=== PATIENT | male | born 1965 | race Caucasian/White ===

== ENCOUNTER 2017-03-07 12:22 | Emergency (ER) | payer SELFPAY ==
[2017-03-07 12:39] VITALS: BP 142/77; PULSE 95; TEMP 98.2; BMI 27.3
[2017-03-07] MEDS ORDERED: KETOROLAC TROMETHAMINE 60 MG/2 ML VIAL IM ONE (14:04)
--- NOTE | 2017-03-07 14:04 | PDOC ---
History of Present Illness - General Chief Complaint: Back Pain Stated Complaint: PAIN Time Seen by Provider: 03/07/17 13:51 History Source: Patient Exam Limitations: No Limitations - History of Present Illness Travel History: Yes Initial Comments: 03/07/17 13:58 Patient here with complaints of left low back pain. Denies fall, trauma, any history of back pain however has had a history of renal colic 3 weeks ago and was treated by PMD in [place]. Denies numbness or tingling to hands or feet, no problems with bowel. States has had some painful urination recently. No fevers States had onset approximately 3 days ago and is progressively worsened. 03/08/17 08:43 Timing/Duration: reports: intermittent Quality: reports: moderate, sharpness, stabbing Abdominal Pain Onset Location: reports: flank Pain Radiation: reports: no radiation Activities at Onset: reports: none Aggravating Factors: improves with: None Past History - Travel Traveled outside of the country in the last 30 days: No Close contact w/someone who was outside of country & ill: No - Past Medical History Allergies/Adverse Reactions: Allergies Allergy/AdvReac Type Severity Reaction Status Date / Time No Known Allergies Allergy Verified 03/07/17 12:36 Home Medications: Ambulatory Orders Oxycodone HCl/Acetaminophen [Percocet 5-325 mg Tablet -] 1 - 2 tab PO Q4H PRN # 10 tablet MDD 4 03/07/17 Tamsulosin HCl [Flomax] 0.4 mg PO DAILY #7 cap.er.24h 03/07/17 COPD: No Other medical history: DENIES. - Suicide/Smoking/Psychosocial Hx Smoking History: Never smoked Review of Systems - Review of Systems Able to Perform ROS?: Yes Is the patient limited Hungarian proficient: Yes Constitutional: Yes: Symptoms Reported, See HPI, Malaise Respiratory: Yes: See HPI. No: Symptoms reported ABD/GI: Yes: Symptoms Reported, See HPI, Nausea : Yes: Symptoms Reported, See HPI Musculoskeletal: Yes: Symptoms Reported, See HPI, Back Pain All Other Systems: Reviewed and Negative *Physical Exam - Vital Signs Last Vital Signs Temp Pulse Resp BP Pulse Ox 98.2 F 95 H 19 142/77 96 03/07/17 12:36 03/07/17 12:36 03/07/17 12:36 03/07/17 12:36 03/07/17 12:36 - Physical Exam General Appearance: Yes: Nourished, Appropriately Dressed, Mild Distress HEENT: positive: CHELSIE, Normal ENT Inspection, Normal Voice, Symmetrical, TMs Normal, Pharynx Normal Neck: positive: Supple. negative: Tender Respiratory/Chest: positive: Lungs Clear, Normal Breath Sounds Gastrointestinal/Abdominal: positive: Normal Bowel Sounds, Soft. negative: Tender, Guarding, Rebound, Tenderness Musculoskeletal: positive: Normal Inspection, CVA Tenderness, CVA Tenderness (L) . negative: Muscle Spasm, Vertebral Tenderness Extremity: positive: Normal Capillary Refill, Normal Range of Motion. 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 Patient experienced same 3 weeks ago and was treated with pain medications and what sounds to be Flomax. States passed 2 kidney stones and felt relief until 2 days ago when he had recurrence of this faint all pain to his left back/flank. CAT scan reveals multiple renal calculi nonobstructing. Also some questionable liver disease. Patient is visiting from [place], will provide report and discs for patient to transport to his private physician and his urologist in [place]. Given Flomax and #10 tablets for pain relief.tabs for pain relief.percocet *DC/Admit/Observation/Transfer Diagnosis at time of Disposition: Renal colic on left side - Discharge Dispostion Disposition: HOME Condition at time of disposition: Stable Admit: No - Prescriptions Prescriptions: Oxycodone HCl/Acetaminophen [Percocet 5-325 mg Tablet -] 1 - 2 tab PO Q4H PRN # 10 tablet MDD 4 PRN Reason: Pain Tamsulosin HCl [Flomax] 0.4 mg PO DAILY #7 cap.er.24h - Referrals - Patient Instructions Printed Discharge Instructions: Kidney Stones -- Adult Additional Instructions: Rest, drink lots of fluids: Teas, water, soups Avoid contact with others until fevers and symptoms resolved Lots of handwashing and good hygiene Continue [id number] medications for symptomatic relief Tylenol or Motrin for fever and pain Flomax 1 tablet daily for 7 days Use Percocet one or 2 tablets every 6 hours as needed for severe pain to bring will make dizzy and sleepy Followup with private physician in one to 2 days as needed Return to emergency department for worsened symptoms, fevers, dehydration - Post Discharge Activity Forms/Work/School Notes: Back to Work
[2017-03-07] MEDS ORDERED: KETOROLAC TROMETHAMINE 60 MG/2 ML VIAL ONE (14:20)
[2017-03-07 14:31] LABS: URINE APPEARANCE CLEAR; URINE BILIRUBIN NEGATIVE (NEGATIVE); URINE BLOOD NEGATIVE (NEGATIVE); URINE COLOR YELLOW; URINE GLUCOSE (UA) NEGATIVE (NEGATIVE); URINE KETONE NEGATIVE (NEGATIVE); URINE LEUK ESTERASE NEGATIVE (NEGATIVE); URINE NITRITE NEGATIVE (NEGATIVE); URINE PROTEIN NEGATIVE (NEGATIVE); URINE UROBILINOGEN NEGATIVE mg/dL (0.2-1.0)
== END 2017-03-07 17:02 | disposition home or self-care (01) ==
LOC: JERFT 12:22
PROC: 3E0233Z Introduction of Anti-inflammatory into Muscle, Percutaneous Approach (ICD-10-PCS; principal; 2017-03-07)
DX: N20.0 Calculus of kidney (principal); Z87.442 Personal history of urinary calculi
CPT/HCPCS: 74176; 81003; 99281-25

== ENCOUNTER 2017-06-09 22:57 | Emergency (ER) | payer SELFPAY ==
[2017-06-09 23:11] VITALS: BP 172/100; PULSE 81; TEMP 97; BMI 27.3
[2017-06-09] MEDS ORDERED: morphine CARPU-JECT 2 MG/1 ML DISP.SYRIN IVPUSH ONE (23:24)
--- NOTE | 2017-06-09 23:24 | PDOC ---
History of Present Illness - General History Source: Patient Exam Limitations: No Limitations - History of Present Illness Initial Comments: 06/09/17 23:53 The patient is a 51 year old male with a significant past medical history of recurrent kidney stones who presents to the ED with complaints of right flank pain since earlier today. Patient reports a sudden onset of right sided flank pain and right lower quadrant pain around 9pm tonight. Patient also reports nausea associated with present symptoms. He states he has a history of recurrent kidney stones and his last episode of was in February 2017. Patient notes he has an appointment with a renal specialist. Denies fever or chills. Denies dysuria or hematuria. Denies vomiting or diarrhea. Denies any other symptoms. <Rachel Kerr - Last Filed: 06/09/17 23:53> <Henny Dougherty - Last Filed: 06/10/17 06:12> - General Chief Complaint: Pain, Acute Stated Complaint: ABD PAIN Time Seen by Provider: 06/09/17 23:12 Past History <Rachel Kerr - Last Filed: 06/09/17 23:53> - Past Medical History COPD: No - Suicide/Smoking/Psychosocial Hx Smoking History: Never smoked Have you smoked in the past 12 months: No Information on smoking cessation initiated: No Hx Alcohol Use: No Drug/Substance Use Hx: No <Henny Dougherty - Last Filed: 06/10/17 06:12> - Past Medical History Allergies/Adverse Reactions: Allergies Allergy/AdvReac Type Severity Reaction Status Date / Time No Known Allergies Allergy Verified 06/09/17 23:12 Home Medications: Ambulatory Orders Oxycodone HCl/Acetaminophen [Percocet 5-325 mg Tablet -] 1 - 2 tab PO Q4H PRN # 10 tablet MDD 4 03/07/17 Tamsulosin HCl [Flomax] 0.4 mg PO DAILY #7 cap.er.24h 03/07/17 Ibuprofen [Motrin -] 600 mg PO TID #30 tablet 06/10/17 Tamsulosin HCl [Flomax] 0.4 mg PO DAILY #7 capsule 06/10/17 Review of Systems - Review of Systems Able to Perform ROS?: Yes Comments:: 06/09/17 23:54 CONSTITUTIONAL: Absent: fever, chills, diaphoresis, generalized weakness, malaise, loss of appetite HEENT: Absent: rhinorrhea, nasal congestion, throat pain, throat swelling, difficulty swallowing, mouth swelling, ear pain, eye pain, visual Changes CARDIOVASCULAR: Absent: chest pain, syncope, palpitations, irregular heart rate, lightheadedness , peripheral edema RESPIRATORY: Absent: cough, shortness of breath, dyspnea with exertion, orthopnea, wheezing, stridor, hemoptysis GASTROINTESTINAL: + abdominal pain, nausea Absent: abdominal distension, vomiting, diarrhea, constipation, melena, hematochezia GENITOURINARY: + flank pain Absent: dysuria, frequency, urgency, hesitancy, hematuria, genital pain MUSCULOSKELETAL: Absent: myalgia, arthralgia, joint swelling SKIN: Absent: rash, itching, pallor HEMATOLOGIC/IMMUNOLOGIC: Absent: easy bleeding, easy bruising, lymphadenopathy, frequent infections ENDOCRINE: Absent: unexplained weight gain, unexplained weight loss, heat intolerance, cold intolerance NEUROLOGIC: Absent: headache, focal weakness or paresthesias, dizziness, unsteady gait, seizure, mental status changes, bladder or bowel incontinence PSYCHIATRIC: Absent: anxiety, depression, suicidal or homicidal ideation, hallucinations. All Other Systems: Reviewed and Negative <Rachel Kerr - Last Filed: 06/09/17 23:53> *Physical Exam - Vital Signs Last Vital Signs Temp Pulse Resp BP Pulse Ox 97.0 F L 81 22 172/100 98 06/09/17 23:04 06/09/17 23:04 06/09/17 23:04 06/09/17 23:04 06/09/17 23:04 - Physical Exam Comments: 06/09/17 23:54 GENERAL: Well developed, well nourished. Awake and alert. No acute distress. HEENT: Normocephalic, atraumatic. PERRLA, EOMI. No conjunctival pallor. Sclera are non- icteric. Moist mucous membranes. Oropharynx is clear. NECK: Supple. Full ROM. No JVD. Carotid pulses 2+ and symmetric, without bruits. No thyromegaly. No lymphadenopathy. CARDIOVASCULAR: Regular rate and rhythm. No murmurs, rubs, or gallops. Distal pulses are 2+ and symmetric. PULMONARY: No evidence of respiratory distress. Lungs clear to auscultation bilaterally. No wheezing, rales or rhonchi. ABDOMINAL: + Right flank and right lower quadrant tenderness Soft. Non-distended. No rebound or guarding. No organomegaly. Normoactive bowel sounds. MUSCULOSKELETAL Normal range of motion at all joints. No bony deformities or tenderness. No CVA tenderness. EXTREMITIES: No cyanosis. No clubbing. No edema. No calf tenderness. SKIN: Warm and dry. Normal capillary refill. No rashes. No jaundice. NEUROLOGICAL: Alert, awake, appropriate. Cranial nerves 2-12 intact. No deficits to light touch and temperature in face, upper extremities and lower extremities. No motor deficits in the in face, upper extremities and lower extremities. Normoreflexic in the upper and lower extremities. Normal speech. Toes are down- going bilaterally. Gait is normal without ataxia. PSYCHIATRIC: Cooperative. Good eye contact. Appropriate mood and affect. <Rachel Kerr - Last Filed: 06/09/17 23:53> - Vital Signs Last Vital Signs Temp Pulse Resp BP Pulse Ox 97.0 F L 81 22 172/100 98 06/09/17 23:04 06/09/17 23:04 06/09/17 23:04 06/09/17 23:04 06/09/17 23:04 <Henny Dougherty - Last Filed: 06/10/17 06:12> ED Treatment Course - LABORATORY CBC & Chemistry Diagram: 06/09/17 23:15 06/09/17 23:15 - ADDITIONAL ORDERS Additional order review: 06/09/17 23:15 RBC 4.42 MCV 90.8 MCHC 35.0 RDW 13.3 MPV 9.3 Neutrophils % 66.9 Lymphocytes % 21.5 Monocytes % 8.1 Eosinophils % 3.1 Basophils % 0.4 <Rachel Kerr - Last Filed: 06/09/17 23:53> - LABORATORY CBC & Chemistry Diagram: 06/09/17 23:15 06/09/17 23:15 <Henny Dougherty - Last Filed: 06/10/17 06:12> Medical Decision Making - Medical Decision Making 06/10/17 00:43 Patient Name: JAVI PAYNE THIS IS A PRELIMINARY REPORT FROM [facility] DATE OF SERVICE: 2017-06-10 00:08:14 IMAGES: [id number] EXAM: CT ABDOMEN AND PELVIS WITHOUT CONTRAST 2 mm stone distal right ureter near UVJ causing moderate hydronephrosis. Bilateral nephrolithiasis. Unremarkable pancreas and gallbladder. No bowel obstruction, colitis, free fluid or free air. Normal appendix. Chronic fracture left posterior rib 10. 06/10/17 06:11 Pt got off the bus from [place] with flank pain. He has known renal colic and stones. Pt writhing in pain and he was treated with morphine, NSS and flomax. Pt's sones are no larger than 2mm. He is stable for discharge and outpt follow up with his docs. <Henny Dougherty - Last Filed: 06/10/17 06:12> *DC/Admit/Observation/Transfer - Attestations Scribe Attestion: 06/09/17 23:54 Documentation prepared by Rachel Krer, acting as mobile paramedical examiner for Henny Dougherty MD <Rachel Kerr - Last Filed: 06/09/17 23:53> - Discharge Dispostion Admit: No <Henny Dougherty - Last Filed: 06/10/17 06:12> Diagnosis at time of Disposition: Renal colic on right side - Discharge Dispostion Disposition: HOME Condition at time of disposition: Stable - Prescriptions Prescriptions: Ibuprofen [Motrin -] 600 mg PO TID #30 tablet Tamsulosin HCl [Flomax] 0.4 mg PO DAILY #7 capsule - Referrals Referrals: ON STAFF,NOT [Primary Care Provider] - - Patient Instructions Printed Discharge Instructions: Kidney Stones -- Adult - Post Discharge Activity
[2017-06-09 23:43] LABS: BASO % 0.4 % (0-2.0); EOS % 3.1 % (0-4.5); HEMATOCRIT 40.2 % (35.4-49); HEMOGLOBIN 14.1 GM/dL (11.7-16.9); LYMPH % 21.5 % (8-40); MCH 31.8 pg (25.7-33.7); MEAN CELL VOLUME 90.8 fl (80-96); MEAN PLT VOLUME 9.3 fl (7.5-11.1); MONO % 8.1 % (3.8-10.2); NEUT % 66.9 % (42.8-82.8); PLATELET COUNT 148 K/MM3 (134-434); RBC 4.42 M/mm3 (4.00-5.60); RDW 13.3 % (11.9-15.9); WHITE BLOOD COUNT 7.9 K/mm3 (4.0-10.0)
[2017-06-09] MEDS ORDERED: morphine SULFATE 4 MG/ML VIAL ONE (23:59)
[2017-06-10 00:11] LABS: ALBUMIN 4.1 g/dl (3.4-5.0); ANION GAP 11 (8-16); BLOOD UREA NITROGEN 22 mg/dL (7-18); CHLORIDE 108 mmol/L (98-107); CO2 25 mmol/L (21-32); CREATININE 0.9 mg/dL (0.7-1.3); GLUCOSE,RANDOM 115 mg/dL (74-106); POTASSIUM 3.4 mmol/L (3.5-5.1); SGOT/AST 21 U/L (15-37); SGPT/ALT 34 U/L (12-78); SODIUM 144 mmol/L (136-145)
[2017-06-10 00:12] LABS: URINE APPEARANCE SLCLOUDY; URINE BILIRUBIN NEGATIVE (<2.0 mg/dL); URINE BLOOD 3+ (NEGATIVE); URINE COLOR DKYELLOW; URINE GLUCOSE (UA) NEGATIVE (NEGATIVE); URINE KETONE 1+ (NEGATIVE); URINE LEUK ESTERASE NEGATIVE (NEGATIVE); URINE NITRITE NEGATIVE (NEGATIVE); URINE PROTEIN NEGATIVE (NEGATIVE); URINE UROBILINOGEN NEGATIVE mg/dL (0.2-1.0)
[2017-06-10 00:13] LABS: ALK PHOS 78 U/L (45-117); BILIRUBIN,TOTAL 0.6 mg/dL (0.2-1.0); TOT PROT 7.6 g/dl (6.4-8.2)
[2017-06-10] MEDS ORDERED: SODIUM CHLORIDE 0.9% 500 ML INFUS.BAG IV ONE ×2 (00:18→00:27)
[2017-06-10] MEDS ORDERED: TAMSULOSIN HCL 0.4 MG CAP.ER.24H (FP) PO ONE (00:24)
[2017-06-10 00:29] LABS: EPI CELLS RARE /HPF (FEW); GRANULAR CASTS 3 /lpf; URINE BACTERIA RARE /hpf (NONE SEEN); URINE MUCUS FEW
[2017-06-10] MEDS ORDERED: KETOROLAC TROMETHAMINE 30 MG/1 ML VIAL IVPUSH ONE (00:44)
[2017-06-10] MEDS ORDERED: TAMSULOSIN HCL 0.4 MG CAP.ER.24H (FP) ONE (01:26)
[2017-06-10] MEDS ORDERED: KETOROLAC TROMETHAMINE 30 MG/1 ML VIAL ONE (01:46)
== END 2017-06-10 02:11 | disposition home or self-care (01) ==
LOC: SUPCPDRO 22:57 → JER 22:57
PROC: 3E033NZ Introduction of Analgesics, Hypnotics, Sedatives into Peripheral Vein, Percutaneous Approach (ICD-10-PCS; principal; 2017-06-09)
PROC: 3E0333Z Introduction of Anti-inflammatory into Peripheral Vein, Percutaneous Approach (ICD-10-PCS; 2017-06-09)
DX: N20.0 Calculus of kidney (principal); Z87.442 Personal history of urinary calculi
CPT/HCPCS: 36415; 74176; 80053; 81003; 81015; 85025; 99281-25